=== PATIENT | male | born 1945 | race Caucasian/White ===

== ENCOUNTER → 2016-08-31 | Outpatient (CLI) | payer MEDICARE, BC | LOC: SP 14:33 → MERGE 15:00 | PROVIDERS: ATTEND Specialist | DX: I65.23 Occlusion and stenosis of bilateral carotid arteries (principal) | CPT/HCPCS: 93880 ==

== ENCOUNTER 2018-08-20 12:12 | Observation (INO) | payer MEDICARE, BC ==
[2018-08-20] MEDS ORDERED: ASPIRIN 81 MG TABLET, CHEWABLE PO ONE (13:09)
--- NOTE | 2018-08-20 13:12 | ER Document Report ---
ED Medical Screen (RME) - General Chief Complaint: Chest Pain > 30 Stated Complaint: CHEST PAIN Time Seen by Provider: 08/20/18 13:06 Primary Care Provider: ANGELITO MCCLURE MD [Primary Care Provider] - Follow up as needed Mode of Arrival: Ambulatory Information source: Patient TRAVEL OUTSIDE OF THE [place] IN LAST 30 DAYS: No - HPI Patient complains to provider of: [place] and Neck pain Notes: 08/20/18 13:10 Pain here with complaints of pain in his right shoulder going into his neck for the last few days. Pain is worse when he walks around and when he lays flat. No significant shortness of breath aside from when he exerts himself, but he states that this is chronic. He has had prior four-vessel bypass as well as stents placed. He has had a left carotid endarterectomy. He denies any other complaints. 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 He denies any active chest pain at this time. Physical exam: No distress, nontoxic-appearing. Lungs clear and equal. Plan: Cardiac workup initiated. An initial examination was made on the patient as part of the triage process, and it was determined a more comprehensive evaluation was necessary. Initial labs were ordered and patient was transferred to another provider in the ED who assumed care and finished evaluation and plan. - Related Data Allergies/Adverse Reactions: No Known Allergies Allergy (Verified 08/20/18 12:14) Past Medical History - Past Medical History Cardiac Medical History: Reports: Hx Heart Attack - 06/2014, Hx Hypercholesterolemia, Hx Hypertension Pulmonary Medical History: Denies: Hx Asthma Neurological Medical History: Reports: Hx Cerebrovascular Accident - NO RESIDUALS. Denies: Hx Seizures Endocrine Medical History: Reports: Hx Diabetes Mellitus Type 2 Renal/ Medical History: Denies: Hx Peritoneal Dialysis GI Medical History: Denies: Hx Hepatitis, Hx Hiatal Hernia, Hx Ulcer Infectious Medical History: Denies: Hx Hepatitis Past Surgical History: Reports: Hx Cardiac Surgery - carotid, Hx Open Heart Surgery. Denies: Hx Pacemaker - Immunizations Hx Diphtheria, Pertussis, Tetanus Vaccination: No Physical Exam - Vital signs Vitals: Temp Pulse Resp BP Pulse Ox 98.1 F 73 16 147/76 H 98 08/20/18 12:30 08/20/18 12:30 08/20/18 12:30 08/20/18 12:30 08/20/18 12:30 Course - Vital Signs Vital signs: Temp Pulse Resp BP Pulse Ox 98.1 F 73 16 147/76 H 98 08/20/18 12:30 08/20/18 12:30 08/20/18 12:30 08/20/18 12:30 08/20/18 12:30 Doctor's Discharge - Discharge Referrals: ANGELITO MCCLURE MD [Primary Care Provider] - Follow up as needed
[2018-08-20 13:47] LABS: ABSOLUTE EOSINOPHILS # (AUTO) 0.1 10^3/uL (0.0-0.6); ABSOLUTE LYMPHOCYTES (AUTO) 1.6 10^3/uL (0.5-4.7); ABSOLUTE MONOCYTES (AUTO) 0.7 10^3/uL (0.1-1.4); ABSOLUTE NEUT (AUTO) 5.2 10^3/uL (1.7-8.2); BASOPHILS % (AUTO) 0.6 % (0-2); EOSINOPHILS % (AUTO) 1.1 % (0-6); HEMATOCRIT 36.9 % (37.9-51.0); HEMOGLOBIN 12.5 g/dL (13.5-17.0); LYMPHOCYTES % (AUTO) 21.4 % (13-45); MEAN CORPUSCULAR HEMOGLOBIN 30.9 pg (27.0-33.4); MEAN CORPUSCULAR HGB CONC 33.8 g/dL (32.0-36.0); MEAN CORPUSCULAR VOLUME 91 fl (80-97); MONOCYTES % (AUTO) 9.6 % (3-13); PLATELET COUNT 206 10^3/uL (150-450); RED BLOOD COUNT 4.04 10^6/uL (4.35-5.55); RED CELL DISTRIBUTION WIDTH 14.8 % (11.5-14.0); SEGMENTED NEUTROPHILS % (AUTO) 67.3 % (42-78); TOTAL CELLS COUNTED % (AUTO) 100 %; WHITE BLOOD COUNT 7.7 10^3/uL (4.0-10.5)
--- NOTE | 2018-08-20 14:03 | RADIOLOGY REPORT (SQ) ---
EXAM DESCRIPTION: CHEST SINGLE VIEW COMPLETED DATE/TIME: 08/20/2018 1:41 pm REASON FOR STUDY: shoulder/neck pain COMPARISON: 06/01/2014 EXAM PARAMETERS: NUMBER OF VIEWS: One view. TECHNIQUE: Single frontal radiographic view of the chest acquired. RADIATION DOSE: NA LIMITATIONS: None. FINDINGS: LUNGS AND PLEURA: Mild prominence of the interstitial markings, probably on a chronic bas is. No acute pulmonary consolidation. No pneumothorax or pleural effusion. MEDIASTINUM AND HILAR STRUCTURES: No masses. Contour normal. HEART AND VASCULAR STRUCTURES: Heart normal in size. Normal vasculature. BONES: No acute findings. HARDWARE: Prior anterior median sternotomy since the previous examination. OTHER: No other significant finding. IMPRESSION: 1. Since the previous examination dated 06/01/2014, prior anterior median sternotomy. 2. Mild chronic interstitial markings in the lungs. No acute findings. TECHNICAL DOCUMENTATION: JOB ID: [id number] [employer]- All Rights Reserved Reading location - IP/workstation name: [email or web address]
[2018-08-20 14:09] LABS: ALANINE AMINOTRANSFERASE 21 U/L (21-72); ALKALINE PHOSPHATASE 75 U/L (38-126); ANION GAP 13 (5-19); ASPARTATE AMINO TRANSFERASE 17 U/L (17-59); BILIRUBIN,DIRECT 0.2 mg/dL (0.0-0.4); BILIRUBIN,TOTAL 0.9 mg/dL (0.2-1.3); BLOOD UREA NITROGEN 23 mg/dL (7-20); CALCIUM 9.8 mg/dL (8.4-10.2); CARBON DIOXIDE 24 mmol/L (22-30); CHLORIDE 101 mmol/L (98-107); CREATINE KINASE 81 U/L (55-170); GLUCOSE 171 mg/dL (75-110); SODIUM 137.5 mmol/L (137-145); TOTAL PROTEIN 7.4 g/dL (6.3-8.2)
[2018-08-20 14:20] LABS: CREATINE KINASE MB 0.87 ng/mL (<4.55)
[2018-08-20 14:21] LABS: TROPONIN I < 0.012 ng/mL
--- NOTE | 2018-08-20 15:29 | ER Document Report ---
ED General - General Chief Complaint: Chest Pain > 30 Stated Complaint: CHEST PAIN Time Seen by Provider: 08/20/18 13:06 Mode of Arrival: Ambulatory Notes: Patient is a 72-year-old male with history of CAD status post CABG and stenting that presents to the emergency department for chief complaint of neck pain with exertion. Patient states he has been having pain since Monday, is particular worse with exertion and with lying down. He did try taking nitro without much relief. He had a history of CABG, and stenting, most recently he had stents about 1 year ago, is currently on Plavix and aspirin which he states he is compliant. At rest she denies having any pain at this time. He does state he has shortness of breath on exertion which he states is chronic with him. Denies having any nausea, vomiting or diaphoresis with this. It does come on he rates the pain as a 3 out of 10 describes as an aching up in his neck, but denies having any pain with swallowing, or difficulty swallowing. Past Medical History: CAD, hypertension, hyperlipidemia Past Surgical History: CABG, PCI with stenting Social History: Former smoker, quit many years ago, denies alcohol or drug use. Family History: Reviewed and noncontributory for presenting illness Allergies: Reviewed, see documented allergy list. REVIEW OF SYSTEMS: Other than noted above, the 12 point review of systems was reviewed with the patient and were negative, all pertinent findings are included in the HPI. PHYSICAL EXAMINATION: Vital signs reviewed, nursing noted reviewed. GENERAL: Elderly male, no acute distress HEAD: Atraumatic, normocephalic. EYES: Eyes appear normal, extraocular movements intact, sclera anicteric, conjunctiva are normal. ENT: nares patent, oropharynx clear without exudates. Moist mucous membranes. NECK: Normal range of motion, supple without lymphadenopathy LUNGS: Breath sounds clear to auscultation bilaterally and equal. No wheezes rales or rhonchi. HEART: Regular rate and rhythm without murmurs ABDOMEN: Soft, nontender, normoactive bowel sounds. No rebound, guarding, or rigidity. No masses appreciated. EXTREMITIES: Nontender, good range of motion, no pitting or edema. NEUROLOGICAL: No focal neurological deficits. Moves all extremities spontaneously Motor and sensory grossly intact on exam. PSYCH: Normal mood, normal affect. SKIN: Warm, Dry, normal turgor, no rashes or lesions noted on exposed skin TRAVEL OUTSIDE OF THE [place] IN LAST 30 DAYS: No - Related Data Allergies/Adverse Reactions: No Known Allergies Allergy (Verified 08/20/18 12:14) Past Medical History - General Information source: Patient - Social History Smoking Status: Unknown if Ever Smoked Family History: Reviewed & Not Pertinent Patient has suicidal ideation: No Patient has homicidal ideation: No - Past Medical History Cardiac Medical History: Reports: Hx Heart Attack - 06/2014, Hx Hypercholesterolemia, Hx Hypertension Pulmonary Medical History: Denies: Hx Asthma Neurological Medical History: Reports: Hx Cerebrovascular Accident - NO RESIDUALS. Denies: Hx Seizures Endocrine Medical History: Reports: Hx Diabetes Mellitus Type 2 Renal/ Medical History: Denies: Hx Peritoneal Dialysis GI Medical History: Denies: Hx Hepatitis, Hx Hiatal Hernia, Hx Ulcer Infectious Medical History: Denies: Hx Hepatitis Past Surgical History: Reports: Hx Cardiac Surgery - carotid, Hx Open Heart Surgery. Denies: Hx Pacemaker - Immunizations Hx Diphtheria, Pertussis, Tetanus Vaccination: No Physical Exam - Vital signs Vitals: Temp Pulse Resp BP Pulse Ox 98.1 F 73 16 147/76 H 98 08/20/18 12:30 08/20/18 12:30 08/20/18 12:30 08/20/18 12:30 08/20/18 12:30 Course - Re-evaluation Re-evalutation: Patient seen and examined vital signs reviewed. Laboratory data and imaging were ordered as appropriate for the patient's presenting symptoms and complaint, with consideration of any critical or life threatening conditions that may be associated with their obtained history and exam as noted above. Patient was treated with aspirin Results were reviewed when available and demonstrated unremarkable workup, negative troponin, negative chest x-ray, EKG unchanged from prior The patient was re-evaluated and was stable Evaluation was most consistent with atypical chest pain, given patient's strong cardiac history, and having exertional neck pain, advised observation, serial troponin testing, patient was agreeable to this plan of care Results were discussed with the patient at this point after careful consideration I feel that that patient should be admitted to the hospital. This was discussed with the patient that it is in the best interest for their care to be admitted for further evaluation and management. Patient agreed with this plan of care. A call was placed to the admitted physician, Dr. Benitez who graciously accepted the patient onto their service. *Note is created using voice recognition software and may contain spelling, syntax or grammatical errors. Laboratory 08/20/18 08/20/18 08/20/18 13:25 13:25 13:25 WBC 7.7 RBC 4.04 L Hgb 12.5 L Hct 36.9 L MCV 91 MCH 30.9 MCHC 33.8 RDW 14.8 H Plt Count 206 Seg Neutrophils % 67.3 Lymphocytes % 21.4 Monocytes % 9.6 Eosinophils % 1.1 Basophils % 0.6 Absolute Neutrophils 5.2 Absolute Lymphocytes 1.6 Absolute Monocytes 0.7 Absolute Eosinophils 0.1 Absolute Basophils 0.0 Sodium 137.5 Potassium 4.0 Chloride 101 Carbon Dioxide 24 Anion Gap 13 BUN 23 H Creatinine 1.12 Est GFR ( Amer) > 60 Est GFR (Non-Af Amer) > 60 Glucose 171 H Calcium 9.8 Total Bilirubin 0.9 Direct Bilirubin 0.2 Neonat Total Bilirubin Not Reportable Neonat Direct Bilirubin Not Reportable Neonat Indirect Bili Not Reportable AST 17 ALT 21 Alkaline Phosphatase 75 Creatine Kinase 81 CK-MB (CK-2) 0.87 Troponin I < 0.012 Total Protein 7.4 Albumin 4.0 Chest X-Ray 08/20/18 13:09 IMPRESSION: 1. Since the previous examination dated 06/01/2014, prior anterior median sternotomy. 2. Mild chronic interstitial markings in the lungs. No acute findings. - Vital Signs Vital signs: Temp Pulse Resp BP Pulse Ox 98.1 F 73 9 L 173/83 H 96 08/20/18 12:30 08/20/18 12:30 08/20/18 15:02 08/20/18 15:02 08/20/18 15:02 - Laboratory Result Diagrams: 08/20/18 13:25 08/20/18 13:25 Laboratory results interpreted by me: 08/20/18 08/20/18 13:25 13:25 RBC 4.04 L Hgb 12.5 L Hct 36.9 L RDW 14.8 H BUN 23 H Glucose 171 H - EKG Interpretation by Me Additional EKG results interpreted by me: EKG demonstrates sinus rhythm with a ventricular rate of 73 bpm, normal axis, QTC 437 ms, rare PVC noted, no ST elevation noted, compared to prior EKG, without significant change. Discharge - Discharge Clinical Impression: Atypical chest pain Condition: Stable Disposition: ADMITTED OBSERVATION Admitting Provider: [facility] Admitted: Telemetry
--- NOTE | 2018-08-20 20:04 | EKG REPORT ---
SEVERITY:- OTHERWISE NORMAL ECG - SINUS RHYTHM VENTRICULAR PREMATURE COMPLEX : Confirmed by: Elizabeth East MD 20-Aug-2018 20:02:57
--- NOTE | 2018-08-20 20:08 | PDOC H&P ---
History of Present Illness Admission Date/PCP: 08/20/18 15:54 ANGELITO MCCLURE MD Patient complains of: chest History of Present Illness: ROHINI DAI is a 72 year old male. 1995 bp. 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 2016 2 stents at [facility]. 1992 diabetes. 2d neck pain with mosts efforts grade 5of10 lasting 5min relieved by ntg or rest. Past Medical History Cardiac Medical History: Reports: Coronary Artery Disease, Myocardial Infarction - 06/2014, Hyperlipidema, Hypertension Pulmonary Medical History: Denies: Asthma EENT Medical History: Reports: Eyes - retinopathy Neurological Medical History: Denies: Seizures Endocrine Medical History: Reports: Diabetes Mellitus Type 2 Renal/ Medical History: Reports: None Malignancy Medical History: Reports: None GI Medical History: Reports: None Denies: Hepatitis, Hiatal Hernia Musculoskeltal Medical History: Reports: None Skin Medical History: Reports: None Psychiatric Medical History: Reports: None Traumatic Medical History: Reports: None Hematology: Reports: None Infectious Medical History: Reports: None Past Surgical History Past Surgical History: Reports: Coronary Artery Bypass Graft, Coronary Stent Denies: Pacemaker Social History Information Source: Dr. Trotter Lives with: Family Smoking Status: Former Smoker Last Time Smoked: 1979 Frequency of Alcohol Use: None Hx Recreational Drug Use: No Hx Prescription Drug Abuse: No - Advance Directive Resuscitation Status: Full Code Family History Family History: Reviewed & Not Pertinent Parental Family History Reviewed: Yes Children Family History Reviewed: Yes Sibling(s) Family History Reviewed.: Yes Medication/Allergy Home Medications: Aspirin [Aspirin 81 mg Chewable Tablet] 81 mg PO DAILY 08/20/18 Benazepril HCl [Lotensin] 40 mg PO DAILY 08/20/18 Cholecalciferol (Vitamin D3) [Vitamin D3 1000 Unit Tablet] 5,000 unit PO DAILY 08/20/18 Clopidogrel Bisulfate [Plavix 75 mg Tablet] 75 mg PO DAILY 08/20/18 Glimepiride [Amaryl 4 mg Tablet] 8 mg PO QAM 08/20/18 Hydrochlorothiazide [Hydrodiuril 12.5 mg Tablet] 12.5 mg PO QAM 08/20/18 Insulin Regular, Human [Novolin R (Reg) Insulin 100 unit/mL] 0 unit SUBCUT .SLD SCALE 08/20/18 Insulin Regular, Human [Novolin R (Reg) Insulin 100 unit/mL] 12 unit SUBCUT ACSUPPER 08/20/18 Isosorbide Mononitrate [Imdur 30 mg Tablet.er] 30 mg PO DAILY 08/20/18 Levothyroxine Sodium [Synthroid 0.075 mg Tablet] 0.075 mg PO Q6AM 08/20/18 Metformin HCl [Glucophage XR 500 mg Tablet] 1,000 mg PO BIDBS 08/20/18 Metoprolol Succinate [Toprol Xl 25 mg Tab.sr] 25 mg PO DAILY 08/20/18 NPH, Human Insulin Isophane [Novolin N (NPH) Insulin 100 unit/mL] 22 unit SUBCUT ACSUPPER 08/20/18 Nitroglycerin [Nitrostat 0.4 mg (1/150 Gr) Tabs 25/Bottle] 1 tab SL Q5MP PRN 08/20/18 Pantoprazole Sodium [Protonix [address] Tablet] 40 mg PO Q6AM 08/20/18 Pioglitazone HCl [Actos] 30 mg PO QAM 08/20/18 Rosuvastatin Calcium [Crestor] 40 mg PO DAILY 08/20/18 Allergies/Adverse Reactions: No Known Allergies Allergy (Verified 08/20/18 12:14) Review of Systems Constitutional: ABSENT: fever(s), headache(s), weight loss Nose, Mouth, and Throat: ABSENT: sore throat Cardiovascular: PRESENT: chest pain, dyspnea on exertion. ABSENT: orthropnea Respiratory: ABSENT: cough Gastrointestinal: ABSENT: abdominal pain, constipation, diarrhea, hematochezia, vomiting Genitourinary: ABSENT: dysuria, hematuria Integumentary: ABSENT: rash Physical Exam Vital Signs: Temp Pulse Resp BP Pulse Ox 98.1 F 73 9 L 173/83 H 96 08/20/18 12:30 08/20/18 12:30 08/20/18 15:02 08/20/18 15:02 08/20/18 16:00 Intake & Output 08/19/18 08/20/18 08/21/18 07:59 07:59 07:59 Weight 285 lb 0.923 oz General appearance: PRESENT: no acute distress Mouth exam: PRESENT: moist Neck exam: ABSENT: lymphadenopathy, tenderness, thyromegaly Respiratory exam: PRESENT: clear to auscultation tenzin Cardiovascular exam: ABSENT: diastolic murmur, irregular rhythm, systolic murmur GI/Abdominal exam: ABSENT: mass, organolmegaly, tenderness Extremities exam: ABSENT: pedal edema Neurological exam: PRESENT: oriented to situation Psychiatric exam: PRESENT: appropriate affect Results Laboratory Results: 08/20/18 13:25 08/20/18 13:25 08/20/18 08/20/18 13:25 13:25 WBC 7.7 RBC 4.04 L Hgb 12.5 L Hct 36.9 L MCV 91 MCH 30.9 MCHC 33.8 RDW 14.8 H Plt Count 206 Seg Neutrophils % 67.3 Lymphocytes % 21.4 Monocytes % 9.6 Eosinophils % 1.1 Basophils % 0.6 Absolute Neutrophils 5.2 Absolute Lymphocytes 1.6 Absolute Monocytes 0.7 Absolute Eosinophils 0.1 Absolute Basophils 0.0 Sodium 137.5 Potassium 4.0 Chloride 101 Carbon Dioxide 24 Anion Gap 13 BUN 23 H Creatinine 1.12 Est GFR ( Amer) > 60 Est GFR (Non-Af Amer) > 60 Glucose 171 H Calcium 9.8 Total Bilirubin 0.9 AST 17 ALT 21 Alkaline Phosphatase 75 Total Protein 7.4 Albumin 4.0 08/20/18 08/20/18 13:25 13:25 Creatine Kinase 81 CK-MB (CK-2) 0.87 Troponin I < 0.012 Impressions: Chest X-Ray 08/20/18 13:09 IMPRESSION: 1. Since the previous examination dated 06/01/2014, prior anterior median sternotomy. 2. Mild chronic interstitial markings in the lungs. No acute findings. 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
[2018-08-20] MEDS ORDERED: NITROGLYCERIN 0.4 MG/TAB 25 TAB/BOTTLE SL PRN (20:19)
[2018-08-20] MEDS ORDERED: GLUCAGON,HUMAN RECOMB 1 MG INJ IM PRN (20:27)
[2018-08-20] MEDS ORDERED: DEXTROSE 50%-WATER 25 GM/50 ML DISP.SYRIN IV PRN ×2 (20:27)
[2018-08-20] MEDS ORDERED: DEXTROSE 40% GEL 15 GM TUBE PO PRN ×2 (20:27)
[2018-08-20] MEDS ORDERED: ENOXAPARIN SODIUM INJ 150 MG/1 ML DISP.SYRIN SUBCUT ONE (21:39)
[2018-08-20] MEDS: INSULIN REG, HUMAN 100 UNIT/ML 3 ML VIAL (PYX) SUBCUT SCH (22:20)
[2018-08-20] MEDS: ENOXAPARIN SODIUM INJ 150 MG/1 ML DISP.SYRIN SUBCUT SCH (22:20)
[2018-08-20] MEDS: ASPIRIN 81 MG TABLET, CHEWABLE PO SCH (22:20)
[2018-08-21] MEDS: LEVOTHYROXINE SODIUM 0.075 MG TABLET PO SCH (05:36)
--- NOTE | 2018-08-21 07:24 | PDOC PROGRESS REPORT ---
Subjective Progress Note for:: 08/21/18 Subjective:: no pain Reason For Visit: ATYPICAL CHEST PAIN Physical Exam Vital Signs: Temp Pulse Resp BP Pulse Ox 97.8 F 61 16 155/69 H 96 08/21/18 00:18 08/21/18 02:00 08/21/18 00:18 08/21/18 00:18 08/21/18 00:18 Intake & Output 08/19/18 08/20/18 08/21/18 07:59 07:59 07:59 Intake Total 360 Balance 360 Weight 265 lb 14.04 oz General appearance: PRESENT: no acute distress Respiratory exam: PRESENT: clear to auscultation tenzin Cardiovascular exam: ABSENT: diastolic murmur, irregular rhythm, systolic murmur GI/Abdominal exam: ABSENT: tenderness Neurological exam: PRESENT: oriented to situation Psychiatric exam: PRESENT: appropriate affect Results Laboratory Results: 08/20/18 13:25 08/20/18 13:25 08/20/18 08/20/18 08/20/18 13:25 13:25 17:34 Creatine Kinase 81 CK-MB (CK-2) 0.87 Troponin I < 0.012 < 0.012 08/21/18 00:25 Creatine Kinase CK-MB (CK-2) Troponin I < 0.012 Impressions: Chest X-Ray 08/20/18 13:09 IMPRESSION: 1. Since the previous examination dated 06/01/2014, prior anterior median sternotomy. 2. Mild chronic interstitial markings in the lungs. No acute findings. 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
[2018-08-21] MEDS: INSULIN REG, HUMAN 100 UNIT/ML 3 ML VIAL (PYX) SUBCUT SCH ×4 (08:31→21:34)
[2018-08-21] MEDS ORDERED: CLOPIDOGREL BISULFATE 75 MG TABLET PO SCH (10:00)
[2018-08-21] MEDS ORDERED: CHOLECALCIFEROL (D3) 1,000 UNIT TABLET PO SCH (10:00)
[2018-08-21] MEDS ORDERED: (PENDING PHARMACY ID) (Rosuvastatin Calcium [Crestor] 40 MG) PO SCH (10:00)
[2018-08-21] MEDS ORDERED: (PENDING PHARMACY ID) (Benazepril Hcl [Lotensin] 40 MG) PO SCH (10:00)
--- NOTE | 2018-08-21 10:16 | EKG REPORT ---
SEVERITY:- NORMAL ECG - SINUS RHYTHM : Confirmed by: Elizabeth East MD 21-Aug-2018 10:15:08
[2018-08-21] MEDS ORDERED: BENAZEPRIL HCL 20 MG TABLET PO SCH (12:00)
[2018-08-21] MEDS: ASPIRIN 81 MG TABLET, CHEWABLE PO SCH (12:44)
[2018-08-21] MEDS: METFORMIN HCL 500 MG TABLET PO SCH ×3 (12:44→23:56)
[2018-08-21] MEDS: ENOXAPARIN SODIUM INJ 150 MG/1 ML DISP.SYRIN SUBCUT SCH ×2 (13:35→21:56)
[2018-08-21] MEDS ORDERED: REGADENOSON INJ 0.4 MG/5 ML DISP.SYRIN IV ONE (14:53)
[2018-08-21] MEDS ORDERED: ATORVASTATIN CALCIUM 80 MG TABLET PO SCH (22:00)
--- NOTE | 2018-08-21 22:42 | DRAGON STRESS TEST REPORT ---
Intravenous Lexiscan Cardiolite stress test using single photon emmision computerized tomography. Date of procedure: 08/22/2015. Ordering Provider: Dr. Tommy Benitez. Patient's status: In Patient. Indication: Chest pain in a patient with a history of coronary artery disease, coronary artery bypass graft surgery, and history of stents in the coronary arteries.. Coronary risk factors: Age, diabetes mellitus, hypertension, and dyslipidemia. Resting EKG: Sinus Rhythm. There are PVCs. Otherwise EKG within normal limits. Stress EKG: No changes of ischemia. The patient had no chest pain or discomfort, and there were no arrhythmias seen Reason for termination: Protocol. Conclusions: Normal EKG and hemodynamic response to IV Lexiscan. Nuclear data: At rest the patient was given 15.82 millicuries of technetium 99m sestamibi injected intravenously. As per protocol rest non gated SPECT images were obtained. Subsequently the patient was given intravenous Lexiscan at a dose of 0.4 mg in 5 mL intravenously, followed by flush with normal saline. Subsequently the stress dose of 46.9 millicuries of technetium 99m sestamibi was injected intravenously. As per protocol stress gated images were obtained. Nuclear interpretation: Review of images showed that there was a perfusion defect involving the basal inferior wall in both the rest and the stress images, which was unchanged. This area of the basal inferior wall shows diminished motion contraction and thickening by gated study consistent with a prior DC. The rest of the segments of the myocardium had normal perfusion at rest, and normal perfusion post stress with IV Lexiscan. The rest of the segments of the myocardium had normal motion, contraction, and thickening by gated study. T. I D. ratio was normal at 1.00. There is no transient ischemic dilatation of the left ventricle. Computer read rest, and stress left ventricular ejection fraction were 42 %, and 42 %, respectively. Visually both the stress and rest ejection fractions were normal, and greater than 55%. Conclusion: 1. There is no scintigraphic evidence of Lexiscan induced myocardial ischemia. 2. There is scintigraphic evidence of myocardial infarction/scar of the basal inferior wall. Recommendations: 1. Would recommend checking an echo for LV ejection fraction correlation. 2. Aggressive risk factor modification, and treating the underlying co- morbidities. [facility]
[2018-08-22] MEDS ORDERED: PANTOPRAZOLE SODIUM 40 MG TABLET.DR PO SCH (06:00)
[2018-08-22] MEDS: METFORMIN HCL 500 MG TABLET PO SCH (06:39)
[2018-08-22] MEDS: LEVOTHYROXINE SODIUM 0.075 MG TABLET PO SCH (06:39)
--- NOTE | 2018-08-22 07:43 | PDOC DISCHARGE SUMMARY ---
General - Admit/Disc Date/PCP Admission Date/Primary Care Provider: 08/20/18 15:54 ANGELITO MCCLURE MD Discharge Date: 08/22/18 - Discharge Diagnosis (1) Atypical angina Is this a current diagnosis for this admission?: Yes (2) Type 2 diabetes mellitus without complications Is this a current diagnosis for this admission?: Yes (3) Essential (primary) hypertension Is this a current diagnosis for this admission?: Yes - Additional Information Resuscitation Status: Full Code Discharge Diet: Diabetic Discharge Activity: Activity As Tolerated Home Medications: Aspirin [Aspirin 81 mg Chewable Tablet] 81 mg PO DAILY 08/20/18 Benazepril HCl [Lotensin] 40 mg PO DAILY 08/20/18 Cholecalciferol (Vitamin D3) [Vitamin D3 1000 Unit Tablet] 5,000 unit PO DAILY 08/20/18 Clopidogrel Bisulfate [Plavix 75 mg Tablet] 75 mg PO DAILY 08/20/18 Glimepiride [Amaryl 4 mg Tablet] 8 mg PO QAM 08/20/18 Hydrochlorothiazide [Hydrodiuril 12.5 mg Tablet] 12.5 mg PO QAM 08/20/18 Insulin Regular, Human [Novolin R (Reg) Insulin 100 unit/mL] 0 unit SUBCUT .SLD SCALE 08/20/18 Insulin Regular, Human [Novolin R (Reg) Insulin 100 unit/mL] 12 unit SUBCUT ACSUPPER 08/20/18 Isosorbide Mononitrate [Imdur 30 mg Tablet.er] 30 mg PO DAILY 08/20/18 Levothyroxine Sodium [Synthroid 0.075 mg Tablet] 0.075 mg PO Q6AM 08/20/18 Metformin HCl [Glucophage XR 500 mg Tablet] 1,000 mg PO BIDBS 08/20/18 Metoprolol Succinate [Toprol Xl 25 mg Tab.sr] 25 mg PO DAILY 08/20/18 NPH, Human Insulin Isophane [Novolin N (NPH) Insulin 100 unit/mL] 22 unit SUBCUT ACSUPPER 08/20/18 Nitroglycerin [Nitrostat 0.4 mg (1/150 Gr) Tabs 25/Bottle] 1 tab SL Q5MP PRN 08/20/18 Pantoprazole Sodium [Protonix [address] Tablet] 40 mg PO Q6AM 08/20/18 Pioglitazone HCl [Actos] 30 mg PO QAM 08/20/18 Rosuvastatin Calcium [Crestor] 40 mg PO DAILY 08/20/18 History of Present Illness Patient complains of: anterior neck pain with effort History of Present Illness: ROHINI DAI is a 72 year old male. 1995 bp. 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 2016 2 stents at [facility]. 1992 diabetes. 2d neck pain with mosts efforts grade 5of10 lasting 5min relieved by ntg or rest. Hospital Course Hospital Course: mi ruled out. Joann showed inferior basal scar & hypokinesis but no ischemia. Still has neck pain without tenderness to movement or palpation or odynophagia. Physical Exam Vital Signs: Temp Pulse Resp BP Pulse Ox 98 F 81 18 161/83 H 100 08/22/18 03:00 08/22/18 03:00 08/22/18 03:00 08/22/18 03:00 08/22/18 03:00 Intake & Output 08/20/18 08/21/18 08/22/18 07:59 07:59 07:59 Intake Total 360 800 Balance 360 800 Weight 265 lb 14.04 oz 266 lb 5.094 oz General appearance: PRESENT: no acute distress Respiratory exam: PRESENT: clear to auscultation tenzin Cardiovascular exam: ABSENT: diastolic murmur, irregular rhythm, systolic murmur GI/Abdominal exam: ABSENT: mass, organolmegaly, tenderness Extremities exam: ABSENT: pedal edema Neurological exam: PRESENT: oriented to situation Psychiatric exam: PRESENT: appropriate affect Results Laboratory Results: Labs- Last Values WBC 7.7 10^3/uL (4.0-10.5) 08/20/18 13:25 RBC 4.04 10^6/uL (4.35-5.55) L 08/20/18 13:25 Hgb 12.5 g/dL (13.5-17.0) L 08/20/18 13:25 Hct 36.9 % (37.9-51.0) L 08/20/18 13:25 MCV 91 fl (80-97) 08/20/18 13:25 MCH 30.9 pg (27.0-33.4) 08/20/18 13:25 MCHC 33.8 g/dL (32.0-36.0) 08/20/18 13:25 RDW 14.8 % (11.5-14.0) H 08/20/18 13:25 Plt Count 206 10^3/uL (150-450) 08/20/18 13:25 Seg Neutrophils % 67.3 % (42-78) 08/20/18 13:25 Lymphocytes % 21.4 % (13-45) 08/20/18 13:25 Monocytes % 9.6 % (3-13) 08/20/18 13:25 Eosinophils % 1.1 % (0-6) 08/20/18 13:25 Basophils % 0.6 % (0-2) 08/20/18 13:25 Absolute Neutrophils 5.2 10^3/uL (1.7-8.2) 08/20/18 13:25 Absolute Lymphocytes 1.6 10^3/uL (0.5-4.7) 08/20/18 13:25 Absolute Monocytes 0.7 10^3/uL (0.1-1.4) 08/20/18 13:25 Absolute Eosinophils 0.1 10^3/uL (0.0-0.6) 08/20/18 13:25 Absolute Basophils 0.0 10^3/uL (0.0-0.2) 08/20/18 13:25 Sodium 137.5 mmol/L (137-145) 08/20/18 13:25 Potassium 4.0 mmol/L (3.6-5.0) 08/20/18 13:25 Chloride 101 mmol/L (98-107) 08/20/18 13:25 Carbon Dioxide 24 mmol/L (22-30) 08/20/18 13:25 Anion Gap 13 (5-19) 08/20/18 13:25 BUN 23 mg/dL (7-20) H 08/20/18 13:25 Creatinine 1.12 mg/dL (0.52-1.25) 08/20/18 13:25 Est GFR ( Amer) > 60 (>60) 08/20/18 13:25 Est GFR (Non-Af Amer) > 60 (>60) 08/20/18 13:25 Glucose 171 mg/dL (75-110) H 08/20/18 13:25 POC Glucose 188 mg/dL (70-110) H 08/22/18 06:34 Calcium 9.8 mg/dL (8.4-10.2) 08/20/18 13:25 Total Bilirubin 0.9 mg/dL (0.2-1.3) 08/20/18 13:25 Direct Bilirubin 0.2 mg/dL (0.0-0.4) 08/20/18 13:25 Neonat Total Bilirubin Not Reportable 08/20/18 13:25 Neonat Direct Bilirubin Not Reportable 08/20/18 13:25 Neonat Indirect Bili Not Reportable 08/20/18 13:25 AST 17 U/L (17-59) 08/20/18 13:25 ALT 21 U/L (21-72) 08/20/18 13:25 Alkaline Phosphatase 75 U/L (38-126) 08/20/18 13:25 Creatine Kinase 81 U/L (55-170) 08/20/18 13:25 CK-MB (CK-2) 0.87 ng/mL (<4.55) 08/20/18 13:25 Troponin I < 0.012 ng/mL 08/21/18 12:15 Total Protein 7.4 g/dL (6.3-8.2) 08/20/18 13:25 Albumin 4.0 g/dL (3.5-5.0) 08/20/18 13:25 Impressions: Chest X-Ray 08/20/18 13:09 IMPRESSION: 1. Since the previous examination dated 06/01/2014, prior anterior median sternotomy. 2. Mild chronic interstitial markings in the lungs. No acute findings. Qualifiers - * PATIENT BEING DISCHARGED WITH ANY OF THE FOLLOWING DIAGNOSIS: No Plan Discharge Plan: ov me prn. See Dr Luevano who did echo last year.
[2018-08-22] MEDS ORDERED: GLIMEPIRIDE 4 MG TABLET PO SCH (08:00)
[2018-08-22] MEDS ORDERED: HYDROCHLOROTHIAZIDE 12.5 MG TABLET PO SCH (08:00)
[2018-08-22] MEDS: INSULIN REG, HUMAN 100 UNIT/ML 3 ML VIAL (PYX) SUBCUT SCH (08:01)
[2018-08-22 08:22] VITALS: BP 163/87
--- NOTE | 2018-08-23 18:54 | DISCHARGE SUMMARY E ---
Discharge Summary NAME: ROHINI DAI : 1945 AGE: 72Y ADMITTED: 08/20/2018 DISCHARGED: 08/22/2018 ADDENDUM: Recently he also had morbid obesity with BMI 46. DICTATING PHYSICIAN: ANGELITO MCCLURE M.D. [id number] PHY#: [id number] ID: [id number] JOB#: [id number] ACCT: [id number] cc:ANGELITO MCCLURE M.D. >
== END 2018-08-22 08:36 | disposition home or self-care (01) ==
LOC: ER 12:12 → EH 15:54 → 4S 18:57
PROVIDERS: ADMIT Family Medicine; ATTEND Family Medicine
DX: I25.118 Atherosclerotic heart disease of native coronary artery with other forms of angina pectoris (principal); E66.01 Morbid (severe) obesity due to excess calories; I10 Essential (primary) hypertension; M54.2 Cervicalgia; E11.9 Type 2 diabetes mellitus without complications; R06.02 Shortness of breath; I25.2 Old myocardial infarction; Z68.42 Body mass index [BMI] 45.0-49.9, adult; Z79.82 Long term (current) use of aspirin; Z79.4 Long term (current) use of insulin; Z95.1 Presence of aortocoronary bypass graft; Z95.5 Presence of coronary angioplasty implant and graft; Z87.891 Personal history of nicotine dependence; Z86.73 Personal history of transient ischemic attack (TIA), and cerebral infarction without residual deficits; Z79.02 Long term (current) use of antithrombotics/antiplatelets
CPT/HCPCS: 93005 ×2; 99285; 36415 ×2; 82553; 82962 ×3; 82550; 85025; 80053; 84484 ×2; 93017; 71045; 78452; 93010 ×2; G0378 ×3; A9500; J2785; A9270 ×14; J3490 ×3; Q9969; J1815

== ENCOUNTER 2020-05-14 13:43 | Emergency (ER) | payer MEDICARE, BC ==
--- NOTE | 2020-05-14 15:14 | ER Document Report ---
ED Medical Screen (RME) - General Chief Complaint: Cough Stated Complaint: COUGH, FATIGUE, DIARRHEA Time Seen by Provider: 05/14/20 14:59 Primary Care Provider: ANGELITO MCCLURE MD [Primary Care Provider] - Follow up as needed Mode of Arrival: Wheelchair Information source: Patient Notes: HPI; 74-year-old male presents to the emergency room complaining of cough with s hortness of breath, diarrhea and fatigue for the past 2 weeks. Denies any fevers. Dates him and his both had negative rapid Covid test on Monday. States his diarrhea is extremely foul-smelling. Not taking any medications for symptoms. States he has not had any known COVID-19 exposure. States he tried to see his primary care physician but they refused to see him as they feel that he may as he put it "have Covid". Has not been taking anything for his symptoms. Denies any chest pain. PE: Alert and oriented x3. Lungs: Clear to auscultation without rales, rhonchi, wheezes. Heart: Regular rate rhythm without murmurs, rubs, gallops. I have greeted and performed a rapid initial assessment of this patient. A comprehensive ED assessment and evaluation of the patient, analysis of test results and completion of the medical decision making process will be conducted by additional ED providers. I have specifically instructed the patient or family members with the patient to immediately return to any nursing staff should anything change in the patient's condition or with their chief complaint. TRAVEL OUTSIDE OF THE [place] IN LAST 30 DAYS: No - Related Data Allergies/Adverse Reactions: No Known Allergies Allergy (Verified 05/14/20 14:58) Past Medical History - Past Medical History Cardiac Medical History: Reports: Hx Coronary Artery Disease, Hx Heart Attack - 06/2014, Hx Hypercholesterolemia, Hx Hypertension Pulmonary Medical History: Denies: Hx Asthma Neurological Medical History: Reports: Hx Cerebrovascular Accident - NO RESIDUALS. Denies: Hx Seizures Endocrine Medical History: Reports: Hx Diabetes Mellitus Type 2 Renal/ Medical History: Denies: Hx Peritoneal Dialysis GI Medical History: Denies: Hx Hepatitis, Hx Hiatal Hernia, Hx Ulcer Psychiatric Medical History: Denies: Hx Depression Infectious Medical History: Denies: Hx Hepatitis Past Surgical History: Reports: Hx Cardiac Surgery - carotid, Hx Coronary Artery Bypass Graft, Hx Coronary Stent, Hx Open Heart Surgery. Denies: Hx Pacemaker - Immunizations Hx Diphtheria, Pertussis, Tetanus Vaccination: No Physical Exam - Vital signs Vitals: Temp Pulse Resp BP Pulse Ox 98.6 F 80 22 H 170/73 H 96 05/14/20 13:49 05/14/20 13:49 05/14/20 13:49 05/14/20 13:49 05/14/20 13:49 Course - Vital Signs Vital signs: Temp Pulse Resp BP Pulse Ox 98.6 F 80 22 H 170/73 H 96 05/14/20 13:49 05/14/20 13:49 05/14/20 13:49 05/14/20 13:49 05/14/20 13:49 Doctor's Discharge - Discharge Referrals: ANGELITO MCCLURE MD [Primary Care Provider] - Follow up as needed
--- NOTE | 2020-05-14 15:55 | RADIOLOGY REPORT (SQ) ---
EXAM DESCRIPTION: CHEST SINGLE VIEW IMAGES COMPLETED DATE/TIME: 05/14/2020 2:30 pm REASON FOR STUDY: cough COMPARISON: 08/20/2018 EXAM PARAMETERS: NUMBER OF VIEWS: One view. TECHNIQUE: Single frontal radiographic view of the chest acquired. RADIATION DOSE: NA LIMITATIONS: None. FINDINGS: LUNGS AND PLEURA: New areas of focal consolidation in the right upper, left upper and left lower lobe suspicious for multifocal pneumonia. No pleural effusion or pneumothorax. MEDIASTINUM AND HILAR STRUCTURES: No masses. Contour normal. HEART AND VASCULAR STRUCTURES: Heart normal in size. Normal vasculature. BONES: No acute findings. HARDWARE: Postoperative changes of prior CABG. OTHER: No other significant finding. IMPRESSION: Multifocal pneumonia. TECHNICAL DOCUMENTATION: JOB ID: [id number] 2010 [employer]- All Rights Reserved Reading location - IP/workstation name: [email or web address]
[2020-05-14 18:19] LABS: ABSOLUTE LYMPHOCYTES (AUTO) 1.4 10^3/uL (0.5-4.7); ABSOLUTE MONOCYTES (AUTO) 0.6 10^3/uL (0.1-1.4); ABSOLUTE NEUT (AUTO) 5.4 10^3/uL (1.7-8.2); BASOPHILS % (AUTO) 0.5 % (0-2); HEMATOCRIT 36.5 % (37.9-51.0); HEMOGLOBIN 12.5 g/dL (13.5-17.0); LYMPHOCYTES % (AUTO) 18.4 % (13-45); MEAN CORPUSCULAR HEMOGLOBIN 31.1 pg (27.0-33.4); MEAN CORPUSCULAR HGB CONC 34.2 g/dL (32.0-36.0); MEAN CORPUSCULAR VOLUME 91 fl (80-97); MONOCYTES % (AUTO) 7.7 % (3-13); PLATELET COUNT 211 10^3/uL (150-450); RED BLOOD COUNT 4.01 10^6/uL (4.35-5.55); RED CELL DISTRIBUTION WIDTH 14.9 % (11.5-14.0); SEGMENTED NEUTROPHILS % (AUTO) 73.4 % (42-78); TOTAL CELLS COUNTED % (AUTO) 100 %; WHITE BLOOD COUNT 7.3 10^3/uL (4.0-10.5)
--- NOTE | 2020-05-14 18:37 | ER Document Report ---
ED General - General Chief Complaint: Cough Stated Complaint: COUGH, FATIGUE, DIARRHEA Time Seen by Provider: 05/14/20 14:59 Primary Care Provider: ANGELITO MCCLURE MD [Primary Care Provider] - Follow up as needed Mode of Arrival: Wheelchair TRAVEL OUTSIDE OF THE [place] IN LAST 30 DAYS: No - HPI Notes: Patient presents for evaluation of ongoing cough and fatigue. He had an episode of diarrhea this morning that he describes as particularly foul-smelling but that has since resolved and he is not concerned about that. He says he been coughing for a couple of weeks. He had some sort of a Covid test done as an outpatient by a doctor on [facility] a couple of days ago. He got a call 15 or 20 minutes later that said it was negative. He does not know whether this was a rapid antigen test or a PCR test. He has continued to have significant cough and dyspnea with exertion. He denies fever chills but does complain of fatigue. He denies any chest pain. He denies any sputum production. He is otherwise in his usual state of health. He has not traveled outside the area or been exposed that he knows of. - Related Data Allergies/Adverse Reactions: No Known Allergies Allergy (Verified 05/14/20 14:58) Past Medical History - General Information source: Patient - Social History Smoking Status: Former Smoker Family History: Reviewed & Not Pertinent - Medical History Medical History: Other Notes: Past medical history as documented in the electronic health record is reviewed. - Past Medical History Cardiac Medical History: Reports: Hx Coronary Artery Disease, Hx Heart Attack - 06/2014, Hx Hypercholesterolemia, Hx Hypertension Pulmonary Medical History: Denies: Hx Asthma Neurological Medical History: Reports: Hx Cerebrovascular Accident - NO RESIDUALS. Denies: Hx Seizures Endocrine Medical History: Reports: Hx Diabetes Mellitus Type 2 Renal/ Medical History: Denies: Hx Peritoneal Dialysis GI Medical History: Denies: Hx Hepatitis, Hx Hiatal Hernia, Hx Ulcer Psychiatric Medical History: Denies: Hx Depression Infectious Medical History: Denies: Hx Hepatitis Past Surgical History: Reports: Hx Cardiac Surgery - carotid, Hx Coronary Artery Bypass Graft, Hx Coronary Stent, Hx Open Heart Surgery. Denies: Hx Pacemaker - Immunizations Hx Diphtheria, Pertussis, Tetanus Vaccination: No Review of Systems - Review of Systems Notes: All other systems reviewed are negative or noncontributory except as noted in the present illness. Physical Exam - Vital signs Vitals: Temp Pulse Resp BP Pulse Ox 98.6 F 80 22 H 170/73 H 96 05/14/20 13:49 05/14/20 13:49 05/14/20 13:49 05/14/20 13:49 05/14/20 13:49 - Notes Notes: General: Elderly obese male no acute distress. Vital signs and nursing chief complaint are reviewed. HEENT: Grossly normal to inspection. Neck: Supple nontender trachea midline no adenopathy. Chest: Normal configuration, no accessory muscle use or retractions. No respiratory distress. Few scattered rhonchi and frequent coughing throughout. No rales or wheezes heard. Heart: Regular rate and rhythm no murmur rub or gallop. Abdomen: Obese soft nontender no mass organomegaly. Extremities: Without clubbing cyanosis edema or deformity. Skin: Warm dry good turgor no rashes. Neuro: Alert and oriented x3. No focal neuro deficits noted. Course - Re-evaluation Re-evalutation: 05/14/20 20:23 Patient rested comfortably throughout his stay. His respiratory panel came back positive for Covid. The rest of his tests were normal or nondiagnostic. He has stable vital signs, normal oxygen saturation, and no indication for admission at this time. I discussed the patient's symptoms with him and symptomatic control at home. He needs to self quarantine for at least 14 days. He should follow-up with his primary care provider for retesting. He should return to the hospital if his symptoms worsen or if any other concerning symptoms develop. - Vital Signs Vital signs: Temp Pulse Resp BP Pulse Ox 98.6 F 80 22 H 170/73 H 96 05/14/20 13:49 05/14/20 13:49 05/14/20 13:49 05/14/20 13:49 05/14/20 13:49 - Laboratory Results Result Diagrams: 05/14/20 17:45 05/14/20 17:45 Laboratory Results Interpreted: 05/14/20 05/14/20 05/14/20 17:45 17:45 17:45 RBC 4.01 L Hgb 12.5 L Hct 36.5 L RDW 14.9 H Sodium 134.3 L BUN 22 H Glucose 171 H SARS-CoV-2 (PCR) DETECTED H Critical Laboratory Results Reviewed: No Critical Results - Radiology Results Radiology Results Interpreted: 05/14/20 20:23 Chest X-Ray 05/14/20 15:06 IMPRESSION: Multifocal pneumonia. Critical Radiology Results Reviewed: No Critical Results - EKG Interpretation by Me EKG shows normal: Sinus rhythm Rate: Normal Rhythm: NSR Discharge - Discharge Clinical Impression: Pneumonia due to COVID-19 virus Condition: Good Disposition: HOME, SELF-CARE Instructions: COVID-19 Guidance for Persons Under Investigation Additional Instructions: You have COVID-19 pneumonia. You need to rest at home for at least 14 days until your symptoms have resolved and until you have had a follow-up Covid test that is negative. Continue taking your other medications as prescribed. Follow-up with your primary care doctor if your symptoms worsen. Return to the emergency department if you have worsening trouble breathing or if any other concerning emergent symptoms develop. Referrals: ANGELITO MCCLURE MD [Primary Care Provider] - Follow up as needed
[2020-05-14 18:39] LABS: ALBUMIN 3.7 g/dL (3.5-5.0); ALKALINE PHOSPHATASE 103 U/L (38-126); ANION GAP 8 (5-19); ASPARTATE AMINO TRANSFERASE 46 U/L (17-59); BILIRUBIN,DIRECT 0.2 mg/dL (0.0-0.4); BILIRUBIN,TOTAL 0.5 mg/dL (0.2-1.3); BLOOD UREA NITROGEN 22 mg/dL (7-20); CALCIUM 8.9 mg/dL (8.4-10.2); CARBON DIOXIDE 24 mmol/L (22-30); CHLORIDE 102 mmol/L (98-107); GLUCOSE 171 mg/dL (75-110); POTASSIUM 4.5 mmol/L (3.6-5.0); TOTAL PROTEIN 6.9 g/dL (6.3-8.2)
[2020-05-14 21:26] VITALS: BP 162/81
--- NOTE | 2020-05-14 23:45 | EKG REPORT ---
SEVERITY:- ABNORMAL ECG - SINUS RHYTHM NONSPECIFIC INTRAVENTRICULAR CONDUCTION DELAY : Confirmed by: Vanessa Fabian 14-May-2020 23:43:58
== END 2020-05-14 21:15 | disposition home or self-care (01) ==
LOC: ER 13:43
DX: U07.1 COVID-19 (principal); J12.82 Pneumonia due to coronavirus disease 2019; I25.10 Atherosclerotic heart disease of native coronary artery without angina pectoris; I10 Essential (primary) hypertension; I25.2 Old myocardial infarction; E11.9 Type 2 diabetes mellitus without complications; Z95.5 Presence of coronary angioplasty implant and graft; Z95.1 Presence of aortocoronary bypass graft
CPT/HCPCS: 93005; 99285; 36415; 87040; 83605; 85025; 0202U ×23; 80053; 84484; 71045; 93010